=== PATIENT | female | born 1990 | race Two or more races ===

== ENCOUNTER 2022-11-14 08:05 | Emergency (ER) | payer OTHER ==
[~2022-11-14] VITALS: Ht 165.1 cm; Wt 92.1 kg
[2022-11-14] MEDS ORDERED: PRENATAL + DHA1 EAC1 (08:36)
== END 2022-11-14 12:26 | disposition home or self-care (01) ==
LOC: ER 08:05
DX: O26.892 Other specified pregnancy related conditions, second trimester (principal); Z3A.16 16 weeks gestation of pregnancy; R10.2 Pelvic and perineal pain

== ENCOUNTER 2023-03-15 07:28 | Outpatient (CLI) | payer OTHER ==
[~2023-03-15 07:28] MED LIST: PRENATAL + DHA1 EAC1
== END 2023-03-15 08:10 | disposition home or self-care (01) ==
LOC: NST 07:28
PROVIDERS: ATTEND Obstetrics & Gynecology Gynecology
DX: Z34.83 Encounter for supervision of other normal pregnancy, third trimester (principal)

== ENCOUNTER 2023-03-31 16:02 | Outpatient (CLI) | payer OTHER | END 2023-03-31 16:56 | disposition home or self-care (01) | LOC: NST 16:02 | PROVIDERS: ATTEND Obstetrics & Gynecology Maternal & Fetal Medicine | DX: Z34.83 Encounter for supervision of other normal pregnancy, third trimester (principal) ==